=== PATIENT | female | born 1985 | race Caucasian/White ===

== ENCOUNTER 2018-04-22 16:51 | Emergency (ER) | payer MEDICAID ==
[2018-04-22 21:33] LABS: URINE BLOOD (Dip) POC 1+ (NEGATIVE); URINE GLUCOSE (Dip) POC Negative (NEGATIVE); URINE KETONES (Dip) POC Negative (NEGATIVE); URINE LEUKOCYTE EST (Dip) POC Negative (NEGATIVE); URINE NITRITE (Dip) POC Negative (NEGATIVE); URINE TOTAL PROTEIN POC Negative (NEGATIVE)
[2018-04-22 21:40] LABS: ADD MAN DIFF? NO
[2018-04-22 21:41] LABS: WHITE BLOOD COUNT 11.6 10^3/ul (4.8-10.8)
[2018-04-22 21:41] LABS: ABNORMAL IP MESSAGE 1; BASOPHIL # 0.1 10^3/ul (0.0-0.1); BASOPHILS % 0.4 % (0.0-2.0); EOSINOPHILS # 0.2 10^3/ul (0.0-0.5); EOSINOPHILS % 2.1 % (0.0-7.0); HEMATOCRIT 33.1 % (37.0-47.0); HEMOGLOBIN 9.2 g/dl (12.0-16.0); LYMPHOCYTES # 3.5 10^3/ul (0.8-2.9); LYMPHOCYTES % 30.4 % (15.0-51.0); MEAN CORPUSCULAR HGB CONC 27.8 g/dl (32.0-37.0); MEAN CORPUSCULAR VOLUME 64.9 fl (82.0-101.0); MEAN PLATELET VOLUME 9.6 fl (7.4-10.4); MONOCYTE # 0.5 10^3/ul (0.3-0.9); MONOCYTES % 4.6 % (0.0-11.0); NEUTROPHIL # 7.2 10^3/ul (1.6-7.5); PLATELET COUNT 584 10^3/UL (140-415); RED CELL DISTRIBUTION WIDTH 19.3 % (11.5-14.5)
[2018-04-22 21:45] LABS: POSITIVE DIFF @See below
[2018-04-22 22:06] LABS: ALANINE AMINOTRANSFERASE 21 IU/L (13-69); ALBUMIN 4.4 g/dl (3.3-4.9); ALBUMIN/GLOBULIN RATIO 1.07; ALKALINE PHOSPHATASE 99 IU/L (42-121); ANION GAP 11 (5-13); ASPARTATE AMINO TRANSFERASE 23 IU/L (15-46); BLOOD UREA NITROGEN 10 mg/dl (7-20); CALCIUM 9.7 mg/dl (8.4-10.2); CARBON DIOXIDE 31 mmol/L (21-31); CHLORIDE 97 mmol/L (97-110); CREATININE 0.51 mg/dl (0.44-1.00); Estimated GFR > 60 mL/min (>60); GLUCOSE 95 mg/dl (70-220); LIPASE 65 U/L (23-300); POTASSIUM 4.8 mmol/L (3.5-5.1); SODIUM 139 mmol/L (135-144); TOTAL PROTEIN 8.5 g/dl (6.1-8.1)
[2018-04-22] MEDS: ACETAMINOPHEN 325 MG TAB PO (22:07)
[2018-04-22] MEDS: RANITIDINE 150 MG TAB PO (22:48)
[2018-04-22] MEDS: ONDANSETRON (ODT) 4 MG TAB ODT (22:48)
[2018-04-22] MEDS: AMOXICILLIN/CLAV 875 MG TAB PO (22:48)
== END 2018-04-23 00:25 | disposition home or self-care (01) ==
LOC: FTE 04-23 00:25
DX: K80.50 Calculus of bile duct without cholangitis or cholecystitis without obstruction (principal)
CPT/HCPCS: 36415; 76705; 80053; 81003; 81025; 83690; 85025; 99284-25

== ENCOUNTER 2018-04-23 06:02 | Inpatient (IN) | payer MEDICAID ==
[2018-04-23] MEDS: ONDANSETRON 4 MG INJ IV (06:51)
[2018-04-23] MEDS: morphine 4 MG/ML VIAL IV (06:52)
[2018-04-23] MEDS: SOD CHLORIDE 0.9% 1,000 ML IV ×3 (06:52→20:00)
[2018-04-23 06:54] LABS: ADD MAN DIFF? NO
[2018-04-23] MEDS: ALBUTEROL HFA 8 GM INHALER INH (07:00)
[2018-04-23 07:05] LABS: ABNORMAL IP MESSAGE 1; BASOPHIL # 0.1 10^3/ul (0.0-0.1); BASOPHILS % 0.5 % (0.0-2.0); EOSINOPHILS # 0.3 10^3/ul (0.0-0.5); EOSINOPHILS % 2.2 % (0.0-7.0); HEMATOCRIT 34.7 % (37.0-47.0); HEMOGLOBIN 9.6 g/dl (12.0-16.0); LYMPHOCYTES # 3.3 10^3/ul (0.8-2.9); LYMPHOCYTES % 26.3 % (15.0-51.0); MEAN CORPUSCULAR HGB CONC 27.7 g/dl (32.0-37.0); MEAN PLATELET VOLUME 10.3 fl (7.4-10.4); MONOCYTE # 0.6 10^3/ul (0.3-0.9); MONOCYTES % 4.7 % (0.0-11.0); NEUTROPHIL # 8.3 10^3/ul (1.6-7.5); NEUTROPHILS % 65.8 % (39.0-77.0); PLATELET COUNT 591 10^3/UL (140-415); RED BLOOD COUNT 5.34 10^6/ul (4.20-5.40); RED CELL DISTRIBUTION WIDTH 19.9 % (11.5-14.5)
[2018-04-23 07:05] LABS: WHITE BLOOD COUNT 12.6 10^3/ul (4.8-10.8)
[2018-04-23 07:08] LABS: ADD UMIC YES; UR ASCORBIC ACID NEGATIVE (NEGATIVE); UR BACTERIA FEW /HPF (NONE SEEN); UR BILIRUBIN (Dip) NEGATIVE (NEGATIVE); UR BLOOD (Dip) 2+ mg/dL (NEGATIVE); UR CLARITY SLIGHTLY CLOUDY (CLEAR); UR COLOR YELLOW (YELLOW); UR GLUCOSE (Dip) NEGATIVE (NEGATIVE); UR KETONES (Dip) TRACE mg/dL (NEGATIVE); UR LEUKOCYTE ESTERASE (Dip) NEGATIVE Leu/ul (NEGATIVE); UR MUCUS MANY /HPF (NONE SEEN); UR NITRITE (Dip) NEGATIVE (NEGATIVE); UR RBC 6 /HPF (0-5); UR SPECIFIC GRAVITY (Dip) 1.028 (1.003-1.030); UR SQUAMOUS EPITHELIAL CELL MODERATE /HPF (FEW); UR TOTAL PROTEIN (Dip) 1+ mg/dl (NEGATIVE); UR UROBILINOGEN (Dip) NEGATIVE (NEGATIVE); UR WBC 1 /HPF (0-5)
[2018-04-23 07:16] LABS: POSITIVE DIFF @See below
[2018-04-23 07:26] LABS: INR 0.93; PROTIME 12.6 Sec (11.9-14.9)
[2018-04-23 07:27] LABS: PARTIAL THROMBOPLASTIN TIME 24.7 Sec (23.0-35.0)
[2018-04-23 07:31] LABS: ALANINE AMINOTRANSFERASE 17 IU/L (13-69); ALBUMIN 4.4 g/dl (3.3-4.9); ALKALINE PHOSPHATASE 96 IU/L (42-121); AMYLASE 63 U/L (11-123); ANION GAP 10 (5-13); ASPARTATE AMINO TRANSFERASE 21 IU/L (15-46); BILIRUBIN,INDIRECT 0.1 mg/dl (0-1.1); BILIRUBIN,TOTAL 0.1 mg/dl (0.2-1.3); BLOOD UREA NITROGEN 8 mg/dl (7-20); CALCIUM 9.4 mg/dl (8.4-10.2); CARBON DIOXIDE 31 mmol/L (21-31); CHLORIDE 99 mmol/L (97-110); CREATININE 0.57 mg/dl (0.44-1.00); Estimated GFR > 60 mL/min (>60); GLUCOSE 111 mg/dl (70-220); LIPASE 55 U/L (23-300); POTASSIUM 4.4 mmol/L (3.5-5.1); SODIUM 140 mmol/L (135-144); TOTAL PROTEIN 8.4 g/dl (6.1-8.1)
[2018-04-23] MEDS ORDERED: INDOMETHACIN 50 MG SUPP PR (11:00)
[2018-04-23] MEDS ORDERED: NACL 0.9% 3 ML SYG IV (12:00)
[2018-04-23] MEDS ORDERED: ONDANSETRON 4 MG INJ IV ×2 (12:00→18:30)
[2018-04-23] MEDS: FAMOTIDINE 20 MG TAB PO ×2 (12:07→21:00)
[2018-04-23 12:20] LABS: IRON 37 ug/dl (35-150)
[2018-04-23 12:33] LABS: % IRON SATURATION 10 % SAT (22-52); TOTAL IRON BINDING CAPACITY 368 ug/dl (241-421)
[2018-04-23 14:47] LABS: FERRITIN 10.6 ng/ml (6.2-137.0)
[2018-04-23] MEDS ORDERED: IOHEXOL 300MG/ML 30 ML BTL (15:54)
[2018-04-23] MEDS ORDERED: LIDOCAINE 2% (SDV) 5 ML INJ (16:53)
[2018-04-23] MEDS ORDERED: PROPOFOL 20 ML (16:53)
[2018-04-23] MEDS ORDERED: SUCCINYLCHOLINE CHLORIDE 100 MG/5 ML SYG IV (16:53)
[2018-04-23] MEDS ORDERED: MIDAZOLAM 1 MG/ML 2 ML INJ (16:54)
[2018-04-23] MEDS ORDERED: FENTAnyl 50 MCG/ML VIAL (17:13)
[2018-04-23] MEDS ORDERED: DIPHENHYDRAMINE 50 MG INJ IV (18:30)
[2018-04-23] MEDS ORDERED: MEPERIDINE 25 MG INJ IV (18:30)
[2018-04-23] MEDS ORDERED: FENTAnyl 50 MCG/ML VIAL IV (18:30)
[2018-04-23] MEDS ORDERED: HYDROmorphONE 1 MG/5 ML IV SYRINGE IV (18:30)
[2018-04-23] MEDS: SOD FERRIC GLUC COMPLX 125 MG in SOD CHLORIDE 0.9% 100 ML IVPB ×2 (19:37→19:38)
[2018-04-24] MEDS: morphine 2 MG INJ IV ×4 (00:22→20:37)
[2018-04-24] MEDS: SOD CHLORIDE 0.9% 1,000 ML IV ×3 (03:22→22:19)
[2018-04-24 05:28] LABS: ADD MAN DIFF? NO
[2018-04-24 05:30] LABS: ABNORMAL IP MESSAGE 1; BASOPHIL # 0.1 10^3/ul (0.0-0.1); BASOPHILS % 0.5 % (0.0-2.0); EOSINOPHILS # 0.2 10^3/ul (0.0-0.5); EOSINOPHILS % 1.6 % (0.0-7.0); HEMATOCRIT 31.3 % (37.0-47.0); HEMOGLOBIN 8.7 g/dl (12.0-16.0); LYMPHOCYTES # 2.8 10^3/ul (0.8-2.9); MEAN CORPUSCULAR HEMOGLOBIN 18.1 pg (29.0-33.0); MEAN CORPUSCULAR HGB CONC 27.8 g/dl (32.0-37.0); MEAN CORPUSCULAR VOLUME 65.1 fl (82.0-101.0); MEAN PLATELET VOLUME 10.4 fl (7.4-10.4); MONOCYTE # 0.6 10^3/ul (0.3-0.9); MONOCYTES % 5.9 % (0.0-11.0); NEUTROPHIL # 6.7 10^3/ul (1.6-7.5); NEUTROPHILS % 64.7 % (39.0-77.0); PLATELET COUNT 547 10^3/UL (140-415); RED BLOOD COUNT 4.81 10^6/ul (4.20-5.40); RED CELL DISTRIBUTION WIDTH 19.4 % (11.5-14.5)
[2018-04-24 05:30] LABS: WHITE BLOOD COUNT 10.3 10^3/ul (4.8-10.8)
[2018-04-24 05:48] LABS: POSITIVE DIFF @See below
[2018-04-24 06:01] LABS: ALANINE AMINOTRANSFERASE 22 IU/L (13-69); ALBUMIN 3.6 g/dl (3.3-4.9); ALBUMIN/GLOBULIN RATIO 1.05; ALKALINE PHOSPHATASE 96 IU/L (42-121); ANION GAP 7 (5-13); ASPARTATE AMINO TRANSFERASE 38 IU/L (15-46); BILIRUBIN,INDIRECT 0.1 mg/dl (0-1.1); BILIRUBIN,TOTAL 0.1 mg/dl (0.2-1.3); BLOOD UREA NITROGEN 7 mg/dl (7-20); CALCIUM 8.6 mg/dl (8.4-10.2); CARBON DIOXIDE 27 mmol/L (21-31); CHLORIDE 106 mmol/L (97-110); CHOL/HDL RATIO 3.8 RATIO; CHOLESTEROL 146 mg/dl (100-200); CREATININE 0.51 mg/dl (0.44-1.00); Estimated GFR > 60 mL/min (>60); GLUCOSE 117 mg/dl (70-220); HDL CHOLESTEROL 38 mg/dl (34-82); LDL CHOLESTEROL,CALCULATED 66 mg/dl; PHOSPHORUS 3.5 mg/dl (2.5-4.9); POTASSIUM 4.2 mmol/L (3.5-5.1); SODIUM 140 mmol/L (135-144); TRIGLYCERIDES 212 mg/dl (0-149)
[2018-04-24] MEDS: DOCUSATE SODIUM 100 MG CAP PO (08:24)
[2018-04-24] MEDS: FAMOTIDINE 20 MG TAB PO ×2 (08:24→20:30)
[2018-04-24 09:40] LABS: HEMOGLOBIN A1C 6.1 % (0-5.9)
[2018-04-25] MEDS: morphine 2 MG INJ IV ×2 (01:26→20:01)
[2018-04-25] MEDS: SOD CHLORIDE 0.9% 1,000 ML IV ×3 (06:29→20:01)
[2018-04-25] MEDS: FAMOTIDINE 20 MG TAB PO ×2 (08:57→20:01)
[2018-04-25] MEDS: ACETAMINOPHEN 325 MG TAB PO (19:53)
[2018-04-25] MEDS: DEXTROSE 5%-0.45% NACL 1,000 ML IV (20:01)
[2018-04-26] MEDS: morphine 2 MG INJ IV (00:12)
[2018-04-26 05:27] LABS: ADD MAN DIFF? NO
[2018-04-26 05:29] LABS: ABNORMAL IP MESSAGE 1; BASOPHIL # 0.1 10^3/ul (0.0-0.1); BASOPHILS % 0.5 % (0.0-2.0); EOSINOPHILS # 0.3 10^3/ul (0.0-0.5); EOSINOPHILS % 2.9 % (0.0-7.0); HEMATOCRIT 31.6 % (37.0-47.0); HEMOGLOBIN 8.9 g/dl (12.0-16.0); LYMPHOCYTES # 3.1 10^3/ul (0.8-2.9); MEAN CORPUSCULAR HEMOGLOBIN 18.4 pg (29.0-33.0); MEAN CORPUSCULAR HGB CONC 28.2 g/dl (32.0-37.0); MEAN CORPUSCULAR VOLUME 65.3 fl (82.0-101.0); MEAN PLATELET VOLUME 10.1 fl (7.4-10.4); MONOCYTE # 0.5 10^3/ul (0.3-0.9); NEUTROPHIL # 6.5 10^3/ul (1.6-7.5); NEUTROPHILS % 62.2 % (39.0-77.0); NUCLEATED RED BLOOD CELLS% 0.2 /100WBC (0.0-0.0); PLATELET COUNT 560 10^3/UL (140-415); RED BLOOD COUNT 4.84 10^6/ul (4.20-5.40); RED CELL DISTRIBUTION WIDTH 19.9 % (11.5-14.5)
[2018-04-26 05:29] LABS: WHITE BLOOD COUNT 10.5 10^3/ul (4.8-10.8)
[2018-04-26 05:32] LABS: POSITIVE DIFF @See below
[2018-04-26 05:51] LABS: PROTIME 13.3 Sec (11.9-14.9)
[2018-04-26 05:52] LABS: ALANINE AMINOTRANSFERASE 42 IU/L (13-69); ALBUMIN 3.9 g/dl (3.3-4.9); ALBUMIN/GLOBULIN RATIO 1.02; ALKALINE PHOSPHATASE 112 IU/L (42-121); ANION GAP 15 (5-13); ASPARTATE AMINO TRANSFERASE 49 IU/L (15-46); BILIRUBIN,INDIRECT 0.1 mg/dl (0-1.1); BILIRUBIN,TOTAL 0.1 mg/dl (0.2-1.3); BLOOD UREA NITROGEN 5 mg/dl (7-20); CALCIUM 9.3 mg/dl (8.4-10.2); CARBON DIOXIDE 24 mmol/L (21-31); CHLORIDE 101 mmol/L (97-110); Estimated GFR > 60 mL/min (>60); GLUCOSE 107 mg/dl (70-220); PARTIAL THROMBOPLASTIN TIME 30.4 Sec (23.0-35.0); POTASSIUM 3.7 mmol/L (3.5-5.1); SODIUM 140 mmol/L (135-144); TOTAL PROTEIN 7.7 g/dl (6.1-8.1)
[2018-04-26 06:02] LABS: PHOSPHORUS 4.6 mg/dl (2.5-4.9)
[2018-04-26 06:02] LABS: MAGNESIUM 1.8 mg/dl (1.7-2.5)
[2018-04-26] MEDS: FAMOTIDINE 20 MG TAB PO ×2 (09:00→20:23)
[2018-04-26] MEDS: DEXTROSE 5%-0.45% NACL 1,000 ML IV (10:08)
[2018-04-26] MEDS: SOD CHLORIDE 0.9% 1,000 ML IV (12:29)
[2018-04-26] MEDS ORDERED: FENTAnyl 50 MCG/ML VIAL ×2 (15:48→17:05)
[2018-04-26] MEDS ORDERED: ROPIVACAINE 0.2% 20 ML VIAL (15:48)
[2018-04-26] MEDS ORDERED: MEPERIDINE 25 MG INJ IV (16:30)
[2018-04-26] MEDS ORDERED: ALBUTEROL 0.083% (NEB) 2.5 MG/3 ML AMP HHN (16:30)
[2018-04-26] MEDS ORDERED: HYDROmorphONE 1 MG/5 ML IV SYRINGE IV ×2 (16:30)
[2018-04-26] MEDS ORDERED: DIPHENHYDRAMINE 50 MG INJ IV (16:30)
[2018-04-26] MEDS ORDERED: ONDANSETRON 4 MG INJ IV ×2 (16:30→17:30)
[2018-04-26] MEDS ORDERED: FENTAnyl 50 MCG/ML VIAL IV ×2 (16:30)
[2018-04-26] MEDS ORDERED: GLYCOPYRROLATE 0.4 MG INJ (17:05)
[2018-04-26] MEDS ORDERED: LIDOCAINE 100 MG SYRINGE (17:05)
[2018-04-26] MEDS ORDERED: NEOSTIGMINE 3 MG/3 ML SYRINGE (17:05)
[2018-04-26] MEDS ORDERED: PROPOFOL 20 ML (17:05)
[2018-04-26] MEDS ORDERED: ROCURONIUM 50 MG INJ (17:05)
[2018-04-26] MEDS ORDERED: SUCCINYLCHOLINE CHLORIDE 100 MG/5 ML SYG IV (17:05)
[2018-04-26] MEDS: BUPIVACAINE 0.5%/EPI (SDV) 30 ML INJ (17:17)
[2018-04-26] MEDS: LIDOCAINE 1% (MPF) 30 ML INJ (17:18)
[2018-04-26] MEDS: FENTAnyl 50 MCG/ML VIAL IV (17:25)
[2018-04-26] MEDS: METOCLOPRAMIDE 10 MG INJ IV (17:25)
[2018-04-26] MEDS: HYDROmorphONE 1 MG/5 ML IV SYRINGE IV (17:26)
[2018-04-26] MEDS: D5W-0.45 NACL + KCL 20 MEQ 1,000 ML IV (18:44)
[2018-04-26] MEDS: HYDROmorphONE 0.5 MG/0.5 ML SYG IV ×2 (18:44→22:49)
[2018-04-27] MEDS: morphine 2 MG INJ IV (00:58)
[2018-04-27] MEDS: D5W-0.45 NACL + KCL 20 MEQ 1,000 ML IV ×2 (03:22→06:04)
[2018-04-27] MEDS: HYDROmorphONE 0.5 MG/0.5 ML SYG IV (04:59)
[2018-04-27 05:11] LABS: ADD MAN DIFF? NO
[2018-04-27 05:14] LABS: ABNORMAL IP MESSAGE 1; BASOPHILS % 0.2 % (0.0-2.0); EOSINOPHILS # 0.2 10^3/ul (0.0-0.5); EOSINOPHILS % 1.3 % (0.0-7.0); HEMATOCRIT 30.9 % (37.0-47.0); HEMOGLOBIN 8.6 g/dl (12.0-16.0); LYMPHOCYTES # 2.5 10^3/ul (0.8-2.9); LYMPHOCYTES % 20.4 % (15.0-51.0); MEAN CORPUSCULAR HEMOGLOBIN 18.4 pg (29.0-33.0); MEAN CORPUSCULAR HGB CONC 27.8 g/dl (32.0-37.0); MONOCYTE # 0.6 10^3/ul (0.3-0.9); MONOCYTES % 4.8 % (0.0-11.0); NEUTROPHIL # 8.7 10^3/ul (1.6-7.5); NEUTROPHILS % 72.7 % (39.0-77.0); PLATELET COUNT 560 10^3/UL (140-415); RED BLOOD COUNT 4.68 10^6/ul (4.20-5.40); RED CELL DISTRIBUTION WIDTH 20.5 % (11.5-14.5)
[2018-04-27 05:24] LABS: POSITIVE DIFF @See below
[2018-04-27 05:29] LABS: MAGNESIUM 1.6 mg/dl (1.7-2.5)
[2018-04-27 05:29] LABS: PHOSPHORUS 4.1 mg/dl (2.5-4.9)
[2018-04-27 05:38] LABS: ALANINE AMINOTRANSFERASE 47 IU/L (13-69); ALBUMIN 3.8 g/dl (3.3-4.9); ALBUMIN/GLOBULIN RATIO 1.05; ALKALINE PHOSPHATASE 101 IU/L (42-121); ANION GAP 13 (5-13); ASPARTATE AMINO TRANSFERASE 51 IU/L (15-46); BILIRUBIN,INDIRECT 0.1 mg/dl (0-1.1); BILIRUBIN,TOTAL 0.1 mg/dl (0.2-1.3); BLOOD UREA NITROGEN 4 mg/dl (7-20); CALCIUM 9.1 mg/dl (8.4-10.2); CARBON DIOXIDE 26 mmol/L (21-31); CHLORIDE 100 mmol/L (97-110); CREATININE 0.52 mg/dl (0.44-1.00); Estimated GFR > 60 mL/min (>60); GLUCOSE 104 mg/dl (70-220); POTASSIUM 4.1 mmol/L (3.5-5.1); SODIUM 139 mmol/L (135-144); TOTAL PROTEIN 7.4 g/dl (6.1-8.1)
[2018-04-27] MEDS: ENOXAPARIN 40 MG/0.4 ML SYG SC (06:03)
[2018-04-27] MEDS: FAMOTIDINE 20 MG TAB PO (09:26)
[2018-04-27] MEDS: IBUPROFEN 600 MG TAB PO (09:30)
[2018-04-27 10:12] LABS: ANISOCYTOSIS 2+ (0-0); BAND NEUTROPHILS #M 0.6 10^3/ul (0.0-0.6); BAND NEUTROPHILS % (M) 5 % (0-4); GIANT THROMBO% (M) 2 % (0-0); HYPOCHROMASIA 1+ (0-0); LYMPHOCYTES #M 2.6 10^3/ul (0.8-2.9); LYMPHOCYTES % (M) 22 % (15-51); MICROCYTOSIS 2+ (0-0); MONOCYTE #M 0.3 10^3/ul (0.3-0.9); MONOCYTES % (M) 3 % (0-11); PLATELET ESTIMATE NORMAL; REACTIVE LYMPHOCYTES #M 0.1 10^3/ul (0.0-0.0); REACTIVE LYMPHOCYTES% (M) 1 % (0-0); SEG NEUT #M 8.4 10^3/ul (1.6-7.5); SEGMENTED NEUTROPHILS (M) % 69 % (39-77); SMUDGE%M 5 % (0-0)
[2018-04-27] MEDS: MAGNESIUM SULFATE 2 GM/50 ML 50 ML IVPB (11:38)
== END 2018-04-27 14:19 | disposition home or self-care (01) | DRG 419 ==
LOC: E/R 06:02 → MS1 08:34
PROVIDERS: Hospitalist
PROC: 0FC98ZZ Extirpation of Matter from Common Bile Duct, Via Natural or Artificial Opening Endoscopic (ICD-10-PCS; principal; 2018-04-23 17:00)
PROC: 0FT44ZZ Resection of Gallbladder, Percutaneous Endoscopic Approach (ICD-10-PCS; 2018-04-23 17:00)
DX: K80.60 Calculus of gallbladder and bile duct with cholecystitis, unspecified, without obstruction (principal); D64.9 Anemia, unspecified; E66.9 Obesity, unspecified; Z68.36 Body mass index [BMI] 36.0-36.9, adult; I10 Essential (primary) hypertension; J45.909 Unspecified asthma, uncomplicated; D72.829 Elevated white blood cell count, unspecified; E78.5 Hyperlipidemia, unspecified
CPT/HCPCS: 74330; 80053; 80061; 81001; 82150; 82728; 83036; 83540; 83690; 83735; 84100; 84703; 85025; 85610; 85730; 87086; 88304; 96361; 96374; 96375; 99285-25

== ENCOUNTER 2018-07-06 14:12 | Emergency (ER) | payer MEDICAID ==
[2018-07-06] MEDS: ONDANSETRON (ODT) 4 MG TAB ODT (15:15)
[2018-07-06] MEDS: KETOROLAC 30 MG INJ IM (15:16)
== END 2018-07-06 16:11 | disposition home or self-care (01) ==
LOC: FTE 14:12
DX: R51 Headache (principal); I10 Essential (primary) hypertension
CPT/HCPCS: 81025; 96372; 99284-25

== ENCOUNTER 2018-11-12 20:17 | Emergency (ER) | payer MEDICAID ==
[2018-11-12] MEDS: ONDANSETRON (ODT) 4 MG TAB ODT (21:34)
[2018-11-12] MEDS: KETOROLAC 30 MG INJ IM (21:35)
[2018-11-12] MEDS: HYDROCODONE/APAP (5/325) TAB PO (22:22)
== END 2018-11-12 23:14 | disposition home or self-care (01) ==
LOC: FTE 20:17
DX: R51 Headache (principal); I10 Essential (primary) hypertension
CPT/HCPCS: 81025; 96372; 99284-25

== ENCOUNTER 2018-11-23 19:23 | Emergency (ER) | payer MEDICAID ==
[2018-11-23 22:40] LABS: ADD MAN DIFF? NO
[2018-11-23 22:45] LABS: WHITE BLOOD COUNT 12.7 10^3/ul (4.8-10.8)
[2018-11-23 22:45] LABS: BASOPHIL # 0.1 10^3/ul (0.0-0.1); BASOPHILS % 0.4 % (0.0-2.0); EOSINOPHILS # 0.2 10^3/ul (0.0-0.5); EOSINOPHILS % 1.8 % (0.0-7.0); HEMATOCRIT 37.2 % (37.0-47.0); LYMPHOCYTES # 3.4 10^3/ul (0.8-2.9); LYMPHOCYTES % 26.6 % (15.0-51.0); MEAN CORPUSCULAR HEMOGLOBIN 21.7 pg (29.0-33.0); MEAN CORPUSCULAR HGB CONC 29.6 g/dl (32.0-37.0); MEAN CORPUSCULAR VOLUME 73.2 fl (82.0-101.0); MONOCYTE # 0.4 10^3/ul (0.3-0.9); MONOCYTES % 2.8 % (0.0-11.0); NEUTROPHIL # 8.6 10^3/ul (1.6-7.5); NEUTROPHILS % 68.2 % (39.0-77.0); PLATELET COUNT 473 10^3/UL (140-415); RED BLOOD COUNT 5.08 10^6/ul (4.20-5.40); RED CELL DISTRIBUTION WIDTH 17.2 % (11.5-14.5)
[2018-11-23 23:15] LABS: ALANINE AMINOTRANSFERASE 22 IU/L (13-69); ALBUMIN 4.1 g/dl (3.3-4.9); ALBUMIN/GLOBULIN RATIO 1.02; ALKALINE PHOSPHATASE 89 IU/L (42-121); ANION GAP 9 (5-13); ASPARTATE AMINO TRANSFERASE 23 IU/L (15-46); BILIRUBIN,INDIRECT 0.3 mg/dl (0-1.1); BILIRUBIN,TOTAL 0.3 mg/dl (0.2-1.3); BLOOD UREA NITROGEN 10 mg/dl (7-20); CALCIUM 9.3 mg/dl (8.4-10.2); CARBON DIOXIDE 29 mmol/L (21-31); CHLORIDE 101 mmol/L (97-110); CREATININE 0.58 mg/dl (0.44-1.00); Estimated GFR > 60 mL/min (>60); GLUCOSE 122 mg/dl (70-220); LIPASE 48 U/L (23-300); POTASSIUM 3.8 mmol/L (3.5-5.1); SODIUM 139 mmol/L (135-144); TOTAL PROTEIN 8.1 g/dl (6.1-8.1)
[2018-11-23] MEDS: KETOROLAC 30 MG INJ IV (23:37)
[2018-11-23 23:40] LABS: ADD UMIC YES; UR AMORPHOUS CRYSTAL FEW /HPF (NONE SEEN); UR ASCORBIC ACID 40 mg/dL (NEGATIVE); UR BILIRUBIN (Dip) NEGATIVE (NEGATIVE); UR BLOOD (Dip) 1+ mg/dL (NEGATIVE); UR CLARITY CLOUDY (CLEAR); UR COLOR YELLOW (YELLOW); UR GLUCOSE (Dip) NEGATIVE (NEGATIVE); UR KETONES (Dip) NEGATIVE (NEGATIVE); UR LEUKOCYTE ESTERASE (Dip) NEGATIVE Leu/ul (NEGATIVE); UR MUCUS FEW /HPF (NONE SEEN); UR NITRITE (Dip) NEGATIVE (NEGATIVE); UR RBC 7 /HPF (0-5); UR SPECIFIC GRAVITY (Dip) 1.023 (1.003-1.030); UR SQUAMOUS EPITHELIAL CELL MODERATE /HPF (FEW); UR TOTAL PROTEIN (Dip) NEGATIVE (NEGATIVE); UR UROBILINOGEN (Dip) NEGATIVE (NEGATIVE); UR WBC 4 /HPF (0-5)
[2018-11-23] MEDS: SOD CHLORIDE 0.9% 1,000 ML IV (23:48)
[2018-11-24] MEDS: CEFTRIAXONE 1 GM/50 ML (PMX) 50 ML IVPB
== END 2018-11-24 00:26 | disposition home or self-care (01) ==
LOC: E/R 11-24 00:26
DX: N12 Tubulo-interstitial nephritis, not specified as acute or chronic (principal); I10 Essential (primary) hypertension
CPT/HCPCS: 76775; 80053; 81001; 81025; 83690; 85025; 87086; 96374; 96375; 99285-25